=== PATIENT | female | born 1950 | race Caucasian/White ===

== ENCOUNTER 2018-05-08 11:19 | Inpatient (IN) | payer MEDICARE, BC ==
[~2018-05-08] VITALS: Ht 167.6 cm; Wt 60.3 kg
[2018-05-08] MEDS ORDERED: SOD CHLORIDE 0.9% 1,000 ML IV STA (11:34)
[2018-05-08] MEDS ORDERED: ONDANSETRON 4 MG INJ IV STA (11:34)
--- NOTE | 2018-05-08 11:52 | ERD ---
ER Documentation Chief Complaint Chief Complaint weak and dizzy with mild epigastric pain for a few days, nausea no vomiting HPI 67-year-old woman complains of recent dizziness and generalized weakness, she states her symptoms have been going on for a month but got really bad this morning, she felt like she wanted to faint but denies actual loss of consciousness. Upon EMS arrival a field EKG was performed revealing narrow complex bradycardia in the 40s with multiple PVCs. Patient denies history of any medical conditions denies recent new medications, no history of irregular heartbeat. Patient denies fevers or chills, no cough, no chest pain, no weight loss, no shortness of breath. ROS All systems reviewed and are negative except as per history of present illness. Medications Home Meds Reported Medications Ramipril (Ramipril) 1.25 Mg Capsule, 1.25 MG PO DAILY, CAP 05/08/18 Meclizine Hcl* (Meclizine Hcl*) 25 Mg Tablet, 12.5 MG PO BID PRN for DIZZINESS, TAB 05/08/18 Omeprazole* (Omeprazole*) 40 Mg Capsule.dr, 40 MG PO DAILY, #30 CAP 05/08/18 Aspirin (Low Dose Aspirin) 81 Mg Tablet.dr, 81 MG PO DAILY, #30 TAB 05/08/18 Allergies Allergies: Coded Allergies: No Known Allergy (Unverified , 05/08/18) PMhx/Soc Gastritis Medical and Surgical Hx: pt denies Medical Hx, pt denies Surgical Hx History of Surgery: No Anesthesia Reaction: No Hx Neurological Disorder: No Hx Respiratory Disorders: No Hx Cardiac Disorders: No Hx Psychiatric Problems: No Hx Miscellaneous Medical Probl: No Hx Alcohol Use: No Hx Substance Use: No Hx Tobacco Use: No Smoking Status: Never smoker FmHx Family History: No diabetes Physical Exam Vitals Vital Signs Date Temp Pulse Resp B/P (MAP) Pulse Ox O2 O2 Flow FiO2 Time Delivery Rate 05/08/18 98.1 56 18 144/70 98 11:27 (94) Physical Exam GENERAL: Well-developed, well-nourished, well-hydrated, in no apparent distress, looks nontoxic in appearance HEENT: Moist mucous membranes, pink conjunctiva, no cervical spine tenderness or step-off deformities, no goiter, no jaundice or icterus, extraocular movements intact without pain. No submandibular induration, and no pharyngeal erythema NEURO: Alert and oriented 3, cranial nerves II through XII intact bilaterally, pupils equal round reactive to light, no focal deficits or facial asymmetry, sensation intact distally Strength 5/5 in upper and lower extremities bilaterally CARDIAC: Bradycardic and regular LUNGS: Clear bilaterally no wheezing crackles or stridor ABDOMEN: Soft nontender, no guarding, no rigidity, no rebound, no psoas sign no obturator sign. Normoactive bowel sounds SKIN: Warm and dry to touch, no abrasions, contusions, or hematomas, no lacerations, no ecchymosis, no target lesions, and without ulcers EXTREMITIES: No clubbing cyanosis or edema, calves are bilaterally symmetrical, no Homans sign, no popliteal cord sign. Distal pulses equal and bilateral PSYCH: Normal affect without agitation or irritability Result Diagram: 05/08/18 1142 05/08/18 1141 Results 24 hrs Laboratory Tests Test 05/08/18 11:41 05/08/18 11:42 Sodium Level 144 mmol/L Potassium Level 3.6 mmol/L Chloride Level 112 mmol/L Carbon Dioxide Level 25 mmol/L Anion Gap 7 Blood Urea Nitrogen 10 mg/dl Creatinine 0.51 mg/dl Est Glomerular Filtrat Rate mL/min > 60 mL/min Glucose Level 83 mg/dl Calcium Level 8.4 mg/dl Total Bilirubin 0.4 mg/dl Direct Bilirubin 0.00 mg/dl Indirect Bilirubin 0.4 mg/dl Aspartate Amino Transf (AST/SGOT) 22 IU/L Alanine Aminotransferase (ALT/SGPT) 19 IU/L Alkaline Phosphatase 90 IU/L Troponin I < 0.012 ng/ml Total Protein 6.5 g/dl Albumin 3.7 g/dl Globulin 2.80 g/dl Albumin/Globulin Ratio 1.32 Lipase 249 U/L Thyroid Stimulating Hormone (TSH) 1.740 MIU/L Free Thyroxine 0.97 ng/dl Free Triiodothyronine (T3) pg/mL 3.48 pg/ml White Blood Count 7.2 10^3/ul Red Blood Count 4.34 10^6/ul Hemoglobin 12.2 g/dl Hematocrit 38.0 % Mean Corpuscular Volume 87.6 fl Mean Corpuscular Hemoglobin 28.1 pg Mean Corpuscular Hemoglobin Concent 32.1 g/dl Red Cell Distribution Width 13.8 % Platelet Count 384 10^3/UL Mean Platelet Volume 11.0 fl Immature Granulocytes % 0.400 % Neutrophils % 68.0 % Lymphocytes % 23.3 % Monocytes % 7.1 % Eosinophils % 0.8 % Basophils % 0.4 % Nucleated Red Blood Cells % 0.0 /100WBC Immature Granulocytes # 0.030 10^3/ul Neutrophils # 4.9 10^3/ul Lymphocytes # 1.7 10^3/ul Monocytes # 0.5 10^3/ul Eosinophils # 0.1 10^3/ul Basophils # 0.0 10^3/ul Nucleated Red Blood Cells # 0.0 10^3/ul Current Medications Medications Dose Sig/Jim Start Time Status Last (Trade) Ordered Route PRN Stop Time Admin Dose Reason Admin Sodium 1,000 ml @ Q1H STAT 05/08/18 DC 05/08/18 Chloride 1,000 mls/hr IV 11:34 11:51 05/08/18 12:33 Ondansetron 4 mg ONCE STAT 05/08/18 DC 05/08/18 HCl (Zofran IV 11:34 11:50 Inj) 05/08/18 11:37 Procedures/MDM IV line was established patient was placed on personnel clerk rhythm strip revealed a sinus rhythm at about 60 bpm with upright P and T waves. Patient was afebrile I reviewed EMS EKG performed at the scene when patient felt dizzy and reveals a sinus bradycardia at about 40 bpm, multiple premature ventricular contractions, normal axis, narrow QRS complex, no concerning ST elevations or depressions noted One AP view of the chest performed, read by me reveals no acute infiltrates, normal mediastinum, sharp costophrenic and cardiac borders, no air under the diaphragm. Otherwise unremarkable chest x-ray. EKG performed, read by me revealed a normal sinus rhythm at 63 bpm, normal axis, narrow QRS complex, no concerning ST elevations or depressions noted CBC and electrolytes are normal, liver function tests were normal, troponin was negative, thyroid panel normal Patient has no significant past medical history but did exhibit concerning bradycardia and dizziness today, she will be admitted to telemetry setting for continued medical management and cardiology consultation. Departure Diagnosis: Primary Impression: Dizziness Additional Impression: Symptomatic bradycardia Condition: PRASANTH Tang MD May 08, 2018 11:52
[2018-05-08] MEDS ORDERED: OMEP40CA6 PO (12:49)
[2018-05-08] MEDS ORDERED: ASPI81TA52 PO (12:49)
[2018-05-08] MEDS ORDERED: MECL-77 PO (12:49)
[2018-05-08] MEDS ORDERED: RAMI1.2510 PO (12:50)
[2018-05-08] MEDS ORDERED: POTASSIUM CHLORIDE (SR) 20 MEQ TAB PO STA (13:29)
[2018-05-08] MEDS ORDERED: MECLIZINE 12.5 MG TAB PO PRN (13:30)
[2018-05-08] MEDS ORDERED: DOCUSATE SODIUM 100 MG CAP PO PRN (13:30)
[2018-05-08] MEDS ORDERED: ACETAMINOPHEN 325 MG TAB PO PRN (13:30)
[2018-05-08] MEDS ORDERED: ONDANSETRON 4 MG INJ IV PRN (13:30)
[2018-05-08] MEDS ORDERED: NACL 0.9% 3 ML SYG IV SCH (13:30)
[2018-05-08] MEDS ORDERED: MAGNESIUM HYDROXIDE 30ML CUP PO PRN (13:30)
[2018-05-08] MEDS: SOD CHLORIDE 0.9% 1,000 ML IV SCH (13:50)
[2018-05-08] MEDS ORDERED: SOD CHLORIDE 0.9% 100 ML ONE (14:13)
[2018-05-08] MEDS ORDERED: IOHEXOL 300MG/ML 150 ML BTL ONE (14:13)
--- NOTE | 2018-05-08 14:18 | CONS ---
Assessment/Plan Assessment/Plan Hospital Course (Demo Recall) Summary Assessment and Plan: Assessment: Abdominal pain Nausea/vomiting Unintentional weight loss 10 lbs in one week Recent hx of abnormal mammogram Plan: Diet as tolerated NPO after midnight for EGD tomorrow CT abd/pelvis with PO/IV contrast pending Endoscopy - risks/benefits/alternatives/indications of procedure and sedation/anesthesia discussed with patient who states understanding and gives informed consent to proceed. Continu eH2 ashlee- pending results of EGD may change to PPI Further recommendations based on clinical course Patient seen in collaboration with Dr. Chung CC: JEREMIAS CHUNG MD ; Consultation Date/Type/Reason Admit Date/Time Date of Consultation: May 08, 2018 Type of Consult GI Reason for Consultation Abdominal pain ,nausea and vomiting Date/Time of Note DATE: 05/08/18 TIME: 14:10 Hx of Present Illness This is a 67-year-old female with no significant past medical history who presented to the hospital with progressive epigastric/sternal pain associated nausea and nonbloody vomiting. Patient states symptoms began abruptly and have become progressively worse. She notes a 10 pound weight loss over 1 week. She denies overt signs of GI bleed including melena, hematochezia, or hematemesis. She also denies diarrhea or constipation. Current workup is pending we will plan for CT abdomen pelvis with contrast today. Patient will be n.p.o. after midnight we will plan to do an EGD tomorrow. I reviewed risk/benefits of both sedation and procedure patient verbalized understanding is agreeable to procedure. Review of Systems: A 12 system, review was conducted and is negative except as noted in the HPI or here. Past Medical History Home Meds Reported Medications Ramipril (Ramipril) 1.25 Mg Capsule, 1.25 MG PO DAILY, CAP 05/08/18 Meclizine Hcl* (Meclizine Hcl*) 25 Mg Tablet, 12.5 MG PO BID PRN for DIZZINESS, TAB 05/08/18 Omeprazole* (Omeprazole*) 40 Mg Capsule., 40 MG PO DAILY, #30 CAP 05/08/18 Aspirin (Low Dose Aspirin) 81 Mg Tablet., 81 MG PO DAILY, #30 TAB 05/08/18 Medications Current Medications Aspirin (Halfprin) 81 mg DAILY PO ; Start 05/09/18 at 09:00 Meclizine HCl (Antivert) 12.5 mg BID PRN PO DIZZINESS; Start 05/08/18 at 13:30 Sodium Chloride 1,000 ml @ 75 mls/hr [id number] IV Last administered on 05/08/18at 13:50; Admin Dose 75 MLS/HR; Start 05/08/18 at 13:25 IV Flush (NS 3 ml) 3 ml PER PROTOCOL IV ; Start 05/08/18 at 13:30 Ondansetron HCl (Zofran Inj) 4 mg Q6H PRN IV NAUSEA/VOMITING; Start 05/08/18 at 13:30 Acetaminophen (Tylenol Tab) 650 mg Q6H PRN PO .PAIN 1-3 OR TEMP; Start 05/08/18 at 13:30 Docusate Sodium (Colace) 100 mg Q12H PRN PO .CONSTIPATION; Start 05/08/18 at 13:30 Magnesium Hydroxide (Milk Of Mag) 30 ml DAILY PRN PO .CONSTIPATION; Start 05/08/18 at 13:30 Famotidine (Pepcid Iv) 20 mg DAILY IV ; Start 05/09/18 at 09:00 Allergies: Coded Allergies: No Known Allergy (Unverified , 05/08/18) Social History Smoking Status: Never smoker Exam/Review of Systems Exam Vitals Vital Signs Date Temp Pulse Resp B/P (MAP) Pulse Ox O2 O2 Flow FiO2 Time Delivery Rate 05/08/18 98.1 56 18 144/70 98 11:27 (94) Exam PHYSICAL EXAMINATION: GENERAL: Alert & oriented x 3, in no acute distress SKIN: No lesions EYES: Pupils equal reactive to light, no discharge. EARS/NOSE AND THROAT: Ears normal, nose normal NECK: Supple, no masses CHEST: Inspection within normal limits. CARDIOVASCULAR: Heart: Regular rate and rhythm RESPIRATORY: Lungs clear to auscultation and percussion, no wheezing, no rubs GASTROINTESTINAL AND LIVER: Abdomen: Soft, midsternal/epigastric tenderness, non-distended, no hernias, no masses, no organomegaly, no ascites, no guarding, no rebound tenderness, normoactive bowel sounds. Rectal: Deferred. Results Result Diagram: 05/08/18 1142 05/08/18 1141 Results 24hrs Laboratory Tests Test 05/08/18 11:41 05/08/18 11:42 Sodium Level 144 Potassium Level 3.6 Chloride Level 112 H Carbon Dioxide Level 25 Anion Gap 7 Blood Urea Nitrogen 10 Creatinine 0.51 Est Glomerular Filtrat Rate mL/min > 60 Glucose Level 83 Calcium Level 8.4 Magnesium Level 2.1 Total Bilirubin 0.4 Direct Bilirubin 0.00 Indirect Bilirubin 0.4 Aspartate Amino Transf (AST/SGOT) 22 Alanine Aminotransferase (ALT/SGPT) 19 Alkaline Phosphatase 90 Troponin I < 0.012 Total Protein 6.5 Albumin 3.7 Globulin 2.80 Albumin/Globulin Ratio 1.32 Lipase 249 Thyroid Stimulating Hormone (TSH) 1.740 Free Thyroxine 0.97 Free Triiodothyronine (T3) pg/mL 3.48 White Blood Count 7.2 Red Blood Count 4.34 Hemoglobin 12.2 Hematocrit 38.0 Mean Corpuscular Volume 87.6 Mean Corpuscular Hemoglobin 28.1 L Mean Corpuscular Hemoglobin Concent 32.1 Red Cell Distribution Width 13.8 Platelet Count 384 Mean Platelet Volume 11.0 H Immature Granulocytes % 0.400 Neutrophils % 68.0 Lymphocytes % 23.3 Monocytes % 7.1 Eosinophils % 0.8 Basophils % 0.4 Nucleated Red Blood Cells % 0.0 Immature Granulocytes # 0.030 Neutrophils # 4.9 Lymphocytes # 1.7 Monocytes # 0.5 Eosinophils # 0.1 Basophils # 0.0 Nucleated Red Blood Cells # 0.0 Medications Medication Current Medications Aspirin (Halfprin) 81 mg DAILY PO ; Start 05/09/18 at 09:00 Meclizine HCl (Antivert) 12.5 mg BID PRN PO DIZZINESS; Start 05/08/18 at 13:30 Sodium Chloride 1,000 ml @ 75 mls/hr [id number] IV Last administered on 05/08/18at 13:50; Admin Dose 75 MLS/HR; Start 05/08/18 at 13:25 IV Flush (NS 3 ml) 3 ml PER PROTOCOL IV ; Start 05/08/18 at 13:30 Ondansetron HCl (Zofran Inj) 4 mg Q6H PRN IV NAUSEA/VOMITING; Start 05/08/18 at 13:30 Acetaminophen (Tylenol Tab) 650 mg Q6H PRN PO .PAIN 1-3 OR TEMP; Start 05/08/18 at 13:30 Docusate Sodium (Colace) 100 mg Q12H PRN PO .CONSTIPATION; Start 05/08/18 at 13:30 Magnesium Hydroxide (Milk Of Mag) 30 ml DAILY PRN PO .CONSTIPATION; Start 05/08/18 at 13:30 Famotidine (Pepcid Iv) 20 mg DAILY IV ; Start 05/09/18 at 09:00 RAYA CULVER May 08, 2018 14:18
--- NOTE | 2018-05-08 14:25 | HP ---
Date/Time of Note Date/Time of Note DATE: 05/08/18 TIME: 14:00 Assessment/Plan VTE Prophylaxis SCD applied (from Nsg): Yes Pharmacological prophylaxis: LMWH Lines/Catheters IV Catheter Type (from Nrsg): Saline Lock Assessment/Plan Assessment/Plan 1. Acute abdominal pain - Will check CT abd/pelvis to rule out any pathological causes - noted with epigastric pain and weight loss. GI consulted to evaluate need for EGD - sounds like GERD although has been started on PPI by PCP without any improvement. Denied any GI bleeding - PPI on board and Zofran PRN for nausea 2. Acute dizziness - will check CT head for any acute issues - given h/o abnormal mammogram, need to rule out any pathological causes for dizziness - on Meclizine as outpatient without any relief 3. HTN - patient on very low dose Ramipril as outpatient - will give Lisinopril while inhouse - monitor and adjust as needed 4. Weight loss - unknown etiology as this time 5. Diet - cardiac 6. GI ppx - PPI 7. DVT ppx - LMWH 8. Disposition - Admit to telemetry for workup of dizziness and abdominal pain. Result Diagram: 05/08/18 1142 05/08/18 1141 Results 24hrs Laboratory Tests Test 05/08/18 11:41 05/08/18 11:42 Sodium Level 144 Potassium Level 3.6 Chloride Level 112 H Carbon Dioxide Level 25 Anion Gap 7 Blood Urea Nitrogen 10 Creatinine 0.51 Est Glomerular Filtrat Rate mL/min > 60 Glucose Level 83 Calcium Level 8.4 Magnesium Level 2.1 Total Bilirubin 0.4 Direct Bilirubin 0.00 Indirect Bilirubin 0.4 Aspartate Amino Transf (AST/SGOT) 22 Alanine Aminotransferase (ALT/SGPT) 19 Alkaline Phosphatase 90 Troponin I < 0.012 Total Protein 6.5 Albumin 3.7 Globulin 2.80 Albumin/Globulin Ratio 1.32 Lipase 249 Thyroid Stimulating Hormone (TSH) 1.740 Free Thyroxine 0.97 Free Triiodothyronine (T3) pg/mL 3.48 White Blood Count 7.2 Red Blood Count 4.34 Hemoglobin 12.2 Hematocrit 38.0 Mean Corpuscular Volume 87.6 Mean Corpuscular Hemoglobin 28.1 L Mean Corpuscular Hemoglobin Concent 32.1 Red Cell Distribution Width 13.8 Platelet Count 384 Mean Platelet Volume 11.0 H Immature Granulocytes % 0.400 Neutrophils % 68.0 Lymphocytes % 23.3 Monocytes % 7.1 Eosinophils % 0.8 Basophils % 0.4 Nucleated Red Blood Cells % 0.0 Immature Granulocytes # 0.030 Neutrophils # 4.9 Lymphocytes # 1.7 Monocytes # 0.5 Eosinophils # 0.1 Basophils # 0.0 Nucleated Red Blood Cells # 0.0 HPI/ROS Admit Date/Time Admit Date/Time 05/08/18 1300 Hx of Present Illness 67 yo F with PMH HTN presented to ED with worsening dizziness and abdominal pain for the past 6 weeks. Patient states she was evaluated by her PCP for BPPV and did not have findings significant for vertigo. He sent patient for CT head which was not performed yet. Patient also admits to worsening epigastric pain and associated nausea and vomiting. She admits to recent weight loss which she associates with diminished appetite. Denies constipation or diarrhea. She has had regular BMs daily. She was supposed to have a CT scan abd/pelvis performed as well as outpatient. She was concerned that she had issues with her gallbladder. Family at bedside and discussed she was told she needed to have a repeat mammogram performed given her previous one was abnormal. Patient denies any melena, BRBPR, family history of GI issues, cardiac issues. Denies any smoking or alcohol use. Patient was reported to have HR in the 40s during transport in EMS but on EKG was 63. Patient denies any chest pain, shortness of breath, palpitations, LOC, visual changes or paraesthesia. ROS All 12 systems reviewed and pertinent positives as per HPI. All others negative. Constitutional: fatigue; No nausea Eyes: No discharge ENT: No congestion Respiratory: No cough, No shortness of breath, No sputum, No wheezing Cardiovascular: No chest pain, No lightheadedness, No palpitations Gastrointestinal: pain, nausea, vomiting; No constipation, No diarrhea Genitourinary: no complaints Musculoskeletal: no complaints Skin: No bruising, No laceration, No rash Neurologic: dizziness; No confusion, No focal-weakness, No syncope Endocrine: no complaints Lymphatic: no complaints Psychological: nl mood/affect Immunologic: no complaints PMH/Family/Social Past Medical History Medical History: hypertension Medications Current Medications Aspirin (Halfprin) 81 mg DAILY PO ; Start 05/09/18 at 09:00 Meclizine HCl (Antivert) 12.5 mg BID PRN PO DIZZINESS; Start 05/08/18 at 13:30 Sodium Chloride 1,000 ml @ 75 mls/hr [id number] IV Last administered on 05/08/18at 13:50; Admin Dose 75 MLS/HR; Start 05/08/18 at 13:25 IV Flush (NS 3 ml) 3 ml PER PROTOCOL IV ; Start 05/08/18 at 13:30 Ondansetron HCl (Zofran Inj) 4 mg Q6H PRN IV NAUSEA/VOMITING; Start 05/08/18 at 13:30 Acetaminophen (Tylenol Tab) 650 mg Q6H PRN PO .PAIN 1-3 OR TEMP; Start 05/08/18 at 13:30 Docusate Sodium (Colace) 100 mg Q12H PRN PO .CONSTIPATION; Start 05/08/18 at 13:30 Magnesium Hydroxide (Milk Of Mag) 30 ml DAILY PRN PO .CONSTIPATION; Start 05/08/18 at 13:30 Famotidine (Pepcid Iv) 20 mg DAILY IV ; Start 05/09/18 at 09:00 Coded Allergies: No Known Allergy (Unverified , 05/08/18) Past Surgical History Past Surgical Hx: no surgical history Family History Significant Family History: hypertension Social History Alcohol Use: none Smoking Status: Never smoker Drug Use: none Exam/Review of Systems Vital Signs Vitals Vital Signs Date Temp Pulse Resp B/P (MAP) Pulse Ox O2 O2 Flow FiO2 Time Delivery Rate 05/08/18 98.1 56 18 144/70 98 11:27 (94) Exam Exam General: no acute distress. awake and answering questions appropriately. Fatigued HEENT: NC/AT. PERRLA. EOM intact. CVS: S1, S2, regular rhythm, bradycardia. no murmurs Lungs: CTA bilaterally. no wheezing or rhonchi Abd: soft, nontender, nondistended, +BS, no rebound or guarding Ext: no edema, cyanosis, or clubbing Skin: no rashes or lesions appreciated Neuro: no focal deficits, motor and sensory intact Additional Comments Home medications reviewed PROCEDURE: XR Chest. CLINICAL INDICATION: Pain. . TECHNIQUE: Single frontal chest x-ray. COMPARISON: None. FINDINGS: The lungs are clear of acute infiltrates, edema, effusions, or masses.. The cardiomediastinal silhouette is unremarkable. The osseous structures are intact. IMPRESSION: No acute cardiopulmonary disease. RPTAT: GG .Ronak Kemp MD, Date Time Electronically viewed and signed by .Ronak Kemp MD, on 05/08/2018 11:52 ANT MCCURDY MD May 08, 2018 14:12
--- NOTE | 2018-05-08 16:28 | RADRPT ---
Echocardiogram Report Patient Name: SHILPA SCHWABPatient ID: [id number] : 1950 (67y 7m)Study Date: 05/08/2018 2:19:28 PM Gender: FAccession #: [id number] Tech: Dk Narvaez [facility] Location: [facility] Ref.Physician: ANT MCCURDY Height(Cm): BSA: Weight(Kg): Quality: AdequateAccount #: Procedures: Echocardiographic Report: Transthoracic echocardiogram with complete 2D, M-Mode, and doppler examination. Indications: Bradycardia. Measurements: 2D/M Mode Doppler Measurement Value Normal Range Measurement Value Normal Range LVIDd 2D 4.0 [ 3.8 - 5.2 ] cm AV Peak Madan 1.6 [ 100.0 - 170.0 ] cm/sec LVIDs 2D 2.3 [ 2.2 - 3.5 ] cm AV Peak PG 10.0 [ 2.0 - 9.0 ] mmHg LVPWd 2D 1.0 [ 0.6 - 0.9 ] cm LVOT Peak Madan 1.4 [ 70.0 - 110.0 ] cm/sec IVSd 2D 1.0 [ 0.6 - 0.9 ] cm LVOT Peak PG 7.0 [ 2.0 - 6.0 ] mmHg AoR Diam 2D 2.8 [ 2.3 - 3.1 ] cm MV E Peak Madan 0.9 [ 60.0 - 130.0 ] cm/sec EDV 2D 71.7 [ 46.0 - 106.0 ] ml MV A Peak Madan 0.7 [ 100.0 - 120.0 ] cm/sec ESV 2D 17.7 [ 14.0 - 42.0 ] ml MV E/A 1.4 [ 0.8 - 1.5 ] ratio EF 2D 75.3 [ 54.0 - 74.0 ] percent MV Decel Time 261 [ 104 - 258 ] msec LA Dimen 2D 2.6 [ 2.7 - 3.8 ] cm Lat E` Madan 0.1 [ 10.0 - 15.0 ] cm/sec Lateral E/E` 9.9 [ 1.0 - 2.0 ] ratio MV E/A 1.4 [ 0.8 - 1.5 ] ratio TR Peak Madan 2.5 [ 100.0 - 280.0 ] cm/sec TR Peak PG 25.0 mmHg RVSP 28.0 [ 10.0 - 36.0 ] mmHg Findings: Left Ventricle: Normal left ventricular systolic function. Normal left ventricular cavity size. Normal left ventricular wall thickness. Ejection fraction is visually estimated at 60-65 %. Tissue Doppler/Mitral Doppler indices are consistent with impaired relaxation (Stage I diastolic dysfunction). Right Ventricle: Normal right ventricular size. Normal right ventricular systolic function. Left Atrium: The left atrium is normal in size. Right Atrium: The right atrium is normal in size. Mitral Valve: Mild mitral leaflet calcification. Mild mitral annular calcification. Trace mitral regurgitation. Aortic Valve: No significant aortic stenosis or insufficiency. Aortic cusps appear mildly calcified. Tricuspid Valve: Normal appearance of the tricuspid valve. Estimated peak PA systolic pressure 28 mmHg. There is mild tricuspid regurgitation. Pulmonic Valve: Normal pulmonic valve appearance. Pericardium: Normal pericardium with no significant pericardial effusion. Left pleural effusion seen. Aorta: Normal aortic root. IVC: Normal size and normal respiratory collapse consistent with normal right atrial pressure. Conclusions: Normal left ventricular systolic function. Normal left ventricular cavity size. Normal left ventricular wall thickness. Ejection fraction is visually estimated at 60-65 %. Tissue Doppler/Mitral Doppler indices are consistent with impaired relaxation (Stage I diastolic dysfunction). ). Mild mitral leaflet calcification. Mild mitral annular calcification. Trace mitral regurgitation. Normal appearance of the tricuspid valve. Estimated peak PA systolic pressure 28 mmHg. There is mild tricuspid regurgitation. Electronically Signed By: Jasper Maguire 2018-05-08 16:27:36 PDT
[2018-05-08 17:16] VITALS: PULSE 57
[2018-05-08 18:12] VITALS: BP 144/65; PULSE 56; RESP 22
[2018-05-08 18:45] VITALS: Ht 167.6 cm; Wt 60.3 kg
[2018-05-08 19:50] VITALS: BP 117/62; PULSE 53; RESP 18
[2018-05-08 20:03] VITALS: PULSE 64
[2018-05-08 23:15] VITALS: BP 95/51; PULSE 53; RESP 16
[2018-05-09] VITALS (19 sets, daily range): BP systolic 105–166; BP diastolic 53–78; PULSE 51–76; RESP 14–22
[2018-05-09] MEDS: SOD CHLORIDE 0.9% 1,000 ML IV SCH ×2 (03:00→15:53)
[2018-05-09] MEDS: LISINOPRIL 5 MG TAB PO SCH (09:00)
[2018-05-09] MEDS: ASPIRIN (EC) 81 MG TAB PO SCH (09:00)
[2018-05-09] MEDS ORDERED: NON-FORMULARY/PATIENT OWN MED (Omeprazole* 40 MG) PO SCH (09:00)
[2018-05-09] MEDS ORDERED: FAMOTIDINE 20 MG INJ IV SCH ×2 (09:00→20:30)
--- NOTE | 2018-05-09 09:09 | PN ---
Date/Time of Note Date/Time of Note DATE: 05/09/18 TIME: 09:09 Assessment/Plan VTE Prophylaxis Risk score (from Ns)>0 risk: 2 SCD applied (from Ns): Yes Pharmacological prophylaxis: NA/contraindicated Pharm contraindication: low risk/ambulating Lines/Catheters IV Catheter Type (from Nrs): Saline Lock Assessment/Plan Assessment/Plan 1. Acute abdominal pain - CT A/P negative for acute abnormalities - EGD scheduled for today - GI consultation appreciated 2. Acute dizziness - CT head negative for acute abnormalities - on Meclizine as outpatient without any relief 3. HTN - patient on very low dose Ramipril as outpatient - will give Lisinopril while inhouse - monitor and adjust as needed 4. Weight loss - unknown etiology as this time 5. Disposition - EGD pending today and further treatment based on results Result Diagram: 05/09/18 0510 05/09/18 0510 Results 24hrs Laboratory Tests Test 05/08/18 11:41 05/08/18 11:42 05/08/18 12:00 05/09/18 05:10 Sodium Level 144 142 Potassium Level 3.6 4.5 Chloride Level 112 H 105 Carbon Dioxide Level 25 29 Anion Gap 7 8 Blood Urea Nitrogen 10 18 Creatinine 0.51 0.68 Est Glomerular > 60 > 60 Filtrat Rate mL/min Glucose Level 83 89 Calcium Level 8.4 9.2 Magnesium Level 2.1 2.2 Total Bilirubin 0.4 Direct Bilirubin 0.00 Indirect Bilirubin 0.4 Aspartate Amino 22 Transf (AST/SGOT) Alanine 19 Aminotransferase (AL T/SGPT) Alkaline Phosphatase 90 Troponin I < 0.012 Total Protein 6.5 Albumin 3.7 Globulin 2.80 Albumin/Globulin 1.32 Ratio Lipase 249 Thyroid Stimulating 1.740 Hormone (TSH) Free Thyroxine 0.97 Free 3.48 Triiodothyronine (T3) pg/mL White Blood Count 7.2 7.4 Red Blood Count 4.34 4.26 Hemoglobin 12.2 11.9 L Hematocrit 38.0 37.6 Mean Corpuscular 87.6 88.3 Volume Mean Corpuscular 28.1 L 27.9 L Hemoglobin Mean Corpuscular 32.1 31.6 L Hemoglobin Concent Red Cell 13.8 13.9 Distribution Width Platelet Count 384 375 Mean Platelet Volume 11.0 H 11.2 H Immature 0.400 0.300 Granulocytes % Neutrophils % 68.0 61.9 Lymphocytes % 23.3 26.9 Monocytes % 7.1 8.3 Eosinophils % 0.8 2.2 Basophils % 0.4 0.4 Nucleated Red Blood 0.0 0.0 Cells % Immature 0.030 0.020 Granulocytes # Neutrophils # 4.9 4.6 Lymphocytes # 1.7 2.0 Monocytes # 0.5 0.6 Eosinophils # 0.1 0.2 Basophils # 0.0 0.0 Nucleated Red Blood 0.0 0.0 Cells # Urine Color YELLOW Urine Clarity CLEAR Urine pH 5.0 Urine Specific 1.032 H [place] Urine Ketones NEGATIVE Urine Nitrite NEGATIVE Urine Bilirubin NEGATIVE Urine Urobilinogen NEGATIVE Urine Leukocyte NEGATIVE Esterase Urine Hemoglobin NEGATIVE Urine Glucose NEGATIVE Urine Total Protein NEGATIVE Subjective 24 Hr Interval Summary Free Text/Dictation Patient states shes been feeling dizzy since awakening but believes its from not eating. Discussed results of CT scans and plans for EGD today. Exam/Review of Systems Exam Vitals Vital Signs Date Temp Pulse Resp B/P (MAP) Pulse Ox O2 O2 Flow FiO2 Time Delivery Rate 05/09/18 72 08:00 05/09/18 98.5 18 124/64 98 07:42 (84) 05/08/18 Room Air 18:12 Intake and Output 05/08/18 05/08/18 05/09/18 1515:00 23:00 07:00 IntakeIntake Total 465 ml OutputOutput Total 350 ml BalanceBalance 115 ml Exam General: no acute distress. fatigued CVS: S1, S2, regular rhythm, bradycardia. no murmurs Lungs: CTA bilaterally. no wheezing or rhonchi Abd: soft, nontender, nondistended, +BS, no rebound or guarding Ext: no edema, cyanosis, or clubbing Skin: no rashes or lesions appreciated Results Results 24hrs Laboratory Tests Test 05/08/18 11:41 05/08/18 11:42 05/08/18 12:00 05/09/18 05:10 Sodium Level 144 142 Potassium Level 3.6 4.5 Chloride Level 112 H 105 Carbon Dioxide Level 25 29 Anion Gap 7 8 Blood Urea Nitrogen 10 18 Creatinine 0.51 0.68 Est Glomerular > 60 > 60 Filtrat Rate mL/min Glucose Level 83 89 Calcium Level 8.4 9.2 Magnesium Level 2.1 2.2 Total Bilirubin 0.4 Direct Bilirubin 0.00 Indirect Bilirubin 0.4 Aspartate Amino 22 Transf (AST/SGOT) Alanine 19 Aminotransferase (AL T/SGPT) Alkaline Phosphatase 90 Troponin I < 0.012 Total Protein 6.5 Albumin 3.7 Globulin 2.80 Albumin/Globulin 1.32 Ratio Lipase 249 Thyroid Stimulating 1.740 Hormone (TSH) Free Thyroxine 0.97 Free 3.48 Triiodothyronine (T3) pg/mL White Blood Count 7.2 7.4 Red Blood Count 4.34 4.26 Hemoglobin 12.2 11.9 L Hematocrit 38.0 37.6 Mean Corpuscular 87.6 88.3 Volume Mean Corpuscular 28.1 L 27.9 L Hemoglobin Mean Corpuscular 32.1 31.6 L Hemoglobin Concent Red Cell 13.8 13.9 Distribution Width Platelet Count 384 375 Mean Platelet Volume 11.0 H 11.2 H Immature 0.400 0.300 Granulocytes % Neutrophils % 68.0 61.9 Lymphocytes % 23.3 26.9 Monocytes % 7.1 8.3 Eosinophils % 0.8 2.2 Basophils % 0.4 0.4 Nucleated Red Blood 0.0 0.0 Cells % Immature 0.030 0.020 Granulocytes # Neutrophils # 4.9 4.6 Lymphocytes # 1.7 2.0 Monocytes # 0.5 0.6 Eosinophils # 0.1 0.2 Basophils # 0.0 0.0 Nucleated Red Blood 0.0 0.0 Cells # Urine Color YELLOW Urine Clarity CLEAR Urine pH 5.0 Urine Specific 1.032 H [place] Urine Ketones NEGATIVE Urine Nitrite NEGATIVE Urine Bilirubin NEGATIVE Urine Urobilinogen NEGATIVE Urine Leukocyte NEGATIVE Esterase Urine Hemoglobin NEGATIVE Urine Glucose NEGATIVE Urine Total Protein NEGATIVE Medications Medication Current Medications Aspirin (Halfprin) 81 mg DAILY PO ; Start 05/09/18 at 09:00 Meclizine HCl (Antivert) 12.5 mg BID PRN PO DIZZINESS; Start 05/08/18 at 13:30 Sodium Chloride 1,000 ml @ 75 mls/hr [id number] IV Last administered on 05/09/18at 03:00; Admin Dose 75 MLS/HR; Start 05/08/18 at 13:25 IV Flush (NS 3 ml) 3 ml PER PROTOCOL IV ; Start 05/08/18 at 13:30 Ondansetron HCl (Zofran Inj) 4 mg Q6H PRN IV NAUSEA/VOMITING; Start 05/08/18 at 13:30 Acetaminophen (Tylenol Tab) 650 mg Q6H PRN PO .PAIN 1-3 OR TEMP; Start 05/08/18 at 13:30 Docusate Sodium (Colace) 100 mg Q12H PRN PO .CONSTIPATION; Start 05/08/18 at 13:30 Magnesium Hydroxide (Milk Of Mag) 30 ml DAILY PRN PO .CONSTIPATION; Start 05/08/18 at 13:30 Famotidine (Pepcid Iv) 20 mg DAILY IV ; Start 05/09/18 at 09:00 Lisinopril (Zestril) 5 mg DAILY PO ; Start 05/09/18 at 09:00 ANT MCCURDY MD May 09, 2018 09:09
[2018-05-09] MEDS ORDERED: PROPOFOL 20 ML ONE (16:30)
[2018-05-09] MEDS ORDERED: PROPOFOL 200 MG INJ ONE (16:30)
[2018-05-09] MEDS ORDERED: LIDOCAINE 2% (SDV) 5 ML INJ ONE (16:30)
--- NOTE | 2018-05-09 16:36 | PREAC ---
Date/Time of Note Date/Time of Note DATE: 05/09/18 TIME: 16:35 Anesthesia Eval and Record Evaluation Time Pre-Procedure Interview DATE: 05/09/18 TIME: 16:35 Age 67 Sex female NPO: 8 hrs Preoperative diagnosis epigastric pain and nausea Planned procedure EGD Past Medical History Past Medical History: Includes Cardio: HTN Surgery & Anesthesia Issues No known issue Meds Anticoagulation: No Beta Oralia within 24 hr: No Reason Beta Oralia not given: Pt. not on B-Oralia Reported Medications Ramipril (Ramipril) 1.25 Mg Capsule, 1.25 MG PO DAILY, CAP 05/08/18 Meclizine Hcl* (Meclizine Hcl*) 25 Mg Tablet, 12.5 MG PO BID PRN for DIZZINESS, TAB 05/08/18 Omeprazole* (Omeprazole*) 40 Mg Capsule.dr, 40 MG PO DAILY, #30 CAP 05/08/18 Aspirin (Low Dose Aspirin) 81 Mg Tablet.dr, 81 MG PO DAILY, #30 TAB 05/08/18 Current Medications Aspirin (Halfprin) 81 mg DAILY PO ; Start 05/09/18 at 09:00 Meclizine HCl (Antivert) 12.5 mg BID PRN PO DIZZINESS; Start 05/08/18 at 13:30 Sodium Chloride 1,000 ml @ 75 mls/hr [id number] IV Last administered on 05/09/18at 15:53; Admin Dose 75 MLS/HR; Start 05/08/18 at 13:25 IV Flush (NS 3 ml) 3 ml PER PROTOCOL IV ; Start 05/08/18 at 13:30 Ondansetron HCl (Zofran Inj) 4 mg Q6H PRN IV NAUSEA/VOMITING; Start 05/08/18 at 13:30 Acetaminophen (Tylenol Tab) 650 mg Q6H PRN PO .PAIN 1-3 OR TEMP; Start 05/08/18 at 13:30 Docusate Sodium (Colace) 100 mg Q12H PRN PO .CONSTIPATION; Start 05/08/18 at 13:30 Magnesium Hydroxide (Milk Of Mag) 30 ml DAILY PRN PO .CONSTIPATION; Start 05/08/18 at 13:30 Famotidine (Pepcid Iv) 20 mg DAILY IV Last administered on 05/09/18at 09:35; Admin Dose 20 MG; Start 05/09/18 at 09:00 Lisinopril (Zestril) 5 mg DAILY PO ; Start 05/09/18 at 09:00 Meds reviewed: Yes Allergies Coded Allergies: No Known Allergy (Unverified , 05/08/18) Allergies Reviewed: Yes Labs/Studies Labs Reviewed: Reviewed by anesthesiologist Result Diagram: 05/09/18 0510 05/09/18 0510 Laboratory Tests 05/09/18 05:10 test: N/A Pre-procedure Exam Last vitals Vital Signs Date Temp Pulse Resp B/P (MAP) Pulse Ox O2 O2 Flow FiO2 Time Delivery Rate 05/09/18 99.1 68 20 166/78 100 Room Air 16:26 (107) Airway: Adequate mouth opening, Adequate thyromental dist Mallampati: Mallampati II Teeth: Normal Lung: Normal Heart: Normal ASA Physical Status ASA physical status: 2 Emergency: None Planned Anesthetic General/MAC: Mask Planned Pain Management Parenteral pain med Pre-operative Attestations Prior to commencing anesthesia and surgery, the patient was re-evaluated, there was verification of: *The patient's identity *The results of appropriate recent lab work and preoperative vital signs *The above evaluation not changing prior to induction *Anesthetic plan, risk benefits, alternative and complications discussed with patient/family; questions answered; patient/family understands, accepts and wishes to proceed. Hand Shaper used RAIZA CORMIER MD May 09, 2018 16:36
--- NOTE | 2018-05-09 16:43 | HPN ---
Date/Time of Note Date/Time of Note DATE: 05/09/18 TIME: 16:43 Interval H&P Admission Note Pt. seen H&P reviewed: No system changes JONI KEEN May 09, 2018 16:43
[2018-05-09] MEDS ORDERED: ONDANSETRON 4 MG INJ IV PRN (17:00)
--- NOTE | 2018-05-09 17:30 | PAC ---
Date/Time of Note Date/Time of Note DATE: 05/09/18 TIME: 17:29 Post-Anesthesia Notes Post-Anesthesia Note Last documented vital signs Vital Signs Date Temp Pulse Resp B/P (MAP) Pulse Ox O2 O2 Flow FiO2 Time Delivery Rate 05/09/18 70 14 113/62 96 Room Air 17:19 (79) 05/09/18 98.0 17:09 Activity: WNL Respiratory function: WNL Cardiovascular function: WNL Mental status: Baseline Pain reasonably controlled: Yes Hydration appropriate: Yes Nausea/Vomiting absent: Yes Comments BP: 113/62 HR: 70 RR: 15 T: 98 SaO2: 98% RAIZA CORMIER MD May 09, 2018 17:30
[2018-05-09] MEDS ORDERED: AL HYDROX/MG HYDROX/SIMETH 30 ML CUP PO PRN (20:30)
[2018-05-10] VITALS (10 sets, daily range): BP systolic 112–158; BP diastolic 60–74; PULSE 53–69; RESP 18–19
[2018-05-10] MEDS: SOD CHLORIDE 0.9% 1,000 ML IV SCH (08:00)
[2018-05-10] MEDS: ASPIRIN (EC) 81 MG TAB PO SCH (08:25)
[2018-05-10] MEDS: LISINOPRIL 5 MG TAB PO SCH (08:25)
--- NOTE | 2018-05-10 08:40 | PN ---
Date/Time of Note Date/Time of Note DATE: 05/10/18 TIME: 08:40 Assessment/Plan VTE Prophylaxis Risk score (from Nsg)>0 risk: 2 SCD applied (from Ns): Yes Pharmacological prophylaxis: other Lines/Catheters IV Catheter Type (from Nrsg): Peripheral IV Assessment/Plan Assessment/Plan 1. Acute abdominal pain- improving - GI on board and appreciate recommendations. EGD performed with findings of gastritis and duodenitis. Started on PPI and Carafate - CT A/P negative for acute abnormalities - Hpylori bx negative 2. Acute dizziness- worsening - CT head negative for acute abnormalities and will order MRI to further evaluate given worsening sx and affecting balance - on Meclizine as outpatient without any relief 3. HTN - patient on very low dose Ramipril as outpatient - will give Lisinopril while inhouse - monitor and adjust as needed 4. Weight loss - unknown etiology as this time 5. Disposition - MRI ordered to further assess dizziness given affecting overall balance Result Diagram: 05/09/18 0510 05/09/18 0510 Subjective 24 Hr Interval Summary Free Text/Dictation Patient states her dizziness has worsened since yesterday and affecting her balance. She states the dizziness is associated with abdominal pain. Discussed plan of care and results of all studies with daughter at patients request. Exam/Review of Systems Exam Vitals Vital Signs Date Temp Pulse Resp B/P (MAP) Pulse Ox O2 O2 Flow FiO2 Time Delivery Rate 05/10/18 61 08:00 05/10/18 98.5 18 158/74 96 08:00 (102) 05/09/18 Room Air 17:24 Intake and Output 05/09/18 05/09/18 05/10/18 1414:59 22:59 06:59 IntakeIntake Total 900 ml 1140 ml BalanceBalance 900 ml 1140 ml Exam General: no acute distress. fatigued CVS: S1, S2, regular rhythm, bradycardia. no murmurs Lungs: CTA bilaterally. no wheezing or rhonchi Abd: soft, nontender, nondistended, +BS, no rebound or guarding Ext: no edema, cyanosis, or clubbing Skin: no rashes or lesions appreciated Medications Medication Current Medications Aspirin (Halfprin) 81 mg DAILY PO Last administered on 05/10/18at 08:25; Admin Dose 81 MG; Start 05/09/18 at 09:00 Meclizine HCl (Antivert) 12.5 mg BID PRN PO DIZZINESS Last administered on 05/09/18at 20:38; Admin Dose 12.5 MG; Start 05/08/18 at 13:30 Sodium Chloride 1,000 ml @ 75 mls/hr [id number] IV Last administered on 05/10/18 08:00; Admin Dose 75 MLS/HR; Start 05/08/18 at 13:25 IV Flush (NS 3 ml) 3 ml PER PROTOCOL IV ; Start 05/08/18 at 13:30 Ondansetron HCl (Zofran Inj) 4 mg Q6H PRN IV NAUSEA/VOMITING; Start 05/08/18 at 13:30 Acetaminophen (Tylenol Tab) 650 mg Q6H PRN PO .PAIN 1-3 OR TEMP; Start 05/08/18 at 13:30 Docusate Sodium (Colace) 100 mg Q12H PRN PO .CONSTIPATION; Start 05/08/18 at 13:30 Magnesium Hydroxide (Milk Of Mag) 30 ml DAILY PRN PO .CONSTIPATION; Start 05/08/18 at 13:30 Lisinopril (Zestril) 5 mg DAILY PO Last administered on 05/10/18at 08:25; Admin Dose 5 MG; Start 05/09/18 at 09:00 Al Hydrox/Mg Hydrox/Simethicone (Mag-Al Plus) 30 ml Q6H PRN PO GASTROINTESTINAL UPSET Last administered on 05/09/18at 20:35; Admin Dose 30 ML; Start 05/09/18 at 20:30 Famotidine (Pepcid) 20 mg BID PO Last administered on 05/10/18at 08:25; Admin Dose 20 MG; Start 05/10/18 at 09:00 ANT MCCURDY MD May 10, 2018 08:40
[2018-05-10] MEDS ORDERED: FAMOTIDINE 20 MG TAB PO SCH (09:00)
[2018-05-10] MEDS: SUCRALFATE 1 GM TAB PO SCH ×4 (12:08→20:24)
--- NOTE | 2018-05-10 15:08 | PN ---
Date/Time of Note Date/Time of Note DATE: 05/10/18 TIME: 14:45 Assessment/Plan VTE Prophylaxis Risk score (from Nsg)>0 risk: 2 SCD applied (from Nsg): No SCD contraindicated: low risk/ambulating Pharmacological prophylaxis: heparin Lines/Catheters IV Catheter Type (from Nrsg): Peripheral IV Assessment/Plan Assessment/Plan Assessment: Abdominal pain Dizziness Nausea/vomiting Status post EGD 05/09/2018 -Mild gastritis -Duodenitis -Biopsies are negative for H. 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 Chung Subjective: Results of EGD and the biopsy discussed with the patient. Patient is complain ing of feeling dizzy for the past 2 months. Brain MRI is scheduled for today. Patient never had a colonoscopy done. Recommend colonoscopy for colon cancer screening as an outpatient. PHYSICAL EXAMINATION: GENERAL: Well developed, well nourished, alert & oriented x 3, in no acute distress SKIN: No lesions, no stigmata chronic liver disease, no evidence of bleeding diathesis LYMPHATIC: No palpable lymphadenopathy. HEAD: Normocephalic, atraumatic, no tenderness. EYES: Pupils equal reactive to light and accommodation, full extraocular movements, sclera clear, non-icteric, no discharge. EARS/NOSE AND THROAT: Ears normal, nose normal, oropharynx normal, oral membranes well hydrated without lesions. NECK: Supple, no masses, thyroid normal, JVP within normal limits, carotids normal without bruits. CHEST: Inspection within normal limits. CARDIOVASCULAR: Heart: Regular rate and rhythm, no murmurs, gallops or rubs. Peripheral pulses present within normal limits, no cyanosis, clubbing or edemas. No pulsatile abdominal mass RESPIRATORY: Lungs clear to auscultation and percussion, no wheezing, no rubs GASTROINTESTINAL AND LIVER: Abdomen: Soft, epigastric tenderness, non-distended, no hernias, no masses, no organomegaly, no ascites, no guarding, no rebound tenderness, normoactive bowel sounds. Rectal: Deferred. GENITOURINARY: Female genitalia within normal limits. EXTREMITIES: No cyanosis, clubbing or edema. Result Diagram: 05/09/1850905/09/18509 CC: JONI KEEN ; Exam/Review of Systems Exam Vitals Vital Signs Date Temp Pulse Resp B/P (MAP) Pulse Ox O2 O2 Flow FiO2 Time Delivery Rate 05/10/18 68 12:00 05/10/18 98.2 19 118/66 96 11:32 (83) 05/09/18 Room Air 17:24 Intake and Output 05/09/18 05/09/18 05/10/18 1515:00 23:00 07:00 IntakeIntake Total 900 ml 1140 ml BalanceBalance 900 ml 1140 ml Medications Medication Current Medications Aspirin (Halfprin) 81 mg DAILY PO Last administered on 05/10/18at 08:25; Admin Dose 81 MG; Start 05/09/18 at 09:00 Meclizine HCl (Antivert) 12.5 mg BID PRN PO DIZZINESS Last administered on 05/09/18at 20:38; Admin Dose 12.5 MG; Start 05/08/18 at 13:30 IV Flush (NS 3 ml) 3 ml PER PROTOCOL IV ; Start 05/08/18 at 13:30 Ondansetron HCl (Zofran Inj) 4 mg Q6H PRN IV NAUSEA/VOMITING; Start 05/08/18 at 13:30 Acetaminophen (Tylenol Tab) 650 mg Q6H PRN PO .PAIN 1-3 OR TEMP; Start 05/08/18 at 13:30 Docusate Sodium (Colace) 100 mg Q12H PRN PO .CONSTIPATION; Start 05/08/18 at 13:30 Magnesium Hydroxide (Milk Of Mag) 30 ml DAILY PRN PO .CONSTIPATION; Start 05/08/18 at 13:30 Lisinopril (Zestril) 5 mg DAILY PO Last administered on 05/10/18at 08:25; Admin Dose 5 MG; Start 05/09/18 at 09:00 Al Hydrox/Mg Hydrox/Simethicone (Mag-Al Plus) 30 ml Q6H PRN PO GASTROINTESTINAL UPSET Last administered on 05/09/18at 20:35; Admin Dose 30 ML; Start 05/09/18 at 20:30 Pantoprazole (Protonix Tab) 40 mg BID@,18 PO ; Start 05/10/18 at 18:00 Sucralfate (Carafate) 1 gm QID PO Last administered on 05/10/18at 12:08; Admin Dose 1 GM; Start 05/10/18 at 11:00 ZARIA AMOS NP May 10, 2018 14:55
[2018-05-10] MEDS: PANTOPRAZOLE (EC) 40 MG TAB PO SCH (19:01)
[2018-05-11] VITALS (8 sets, daily range): BP systolic 96–121; BP diastolic 54–66; PULSE 51–70; RESP 18–19
[2018-05-11] MEDS: PANTOPRAZOLE (EC) 40 MG TAB PO SCH (06:49)
--- NOTE | 2018-05-11 08:40 | PN ---
Date/Time of Note Date/Time of Note DATE: 05/11/18 TIME: 08:40 Assessment/Plan VTE Prophylaxis Risk score (from Nsg)>0 risk: 2 SCD applied (from Ns): Yes Pharmacological prophylaxis: NA/contraindicated Pharm contraindication: low risk/ambulating Lines/Catheters IV Catheter Type (from Nrsg): Peripheral IV Assessment/Plan Assessment/Plan 1. Acute abdominal pain- resolving - After started on PPI and Carafate, patient states dizziness has improved - GI on board and appreciate recommendations. EGD performed with findings of gastritis and duodenitis. Started on PPI and Carafate - CT A/P negative for acute abnormalities - Hpylori bx negative 2. Acute dizziness- resolving - MRI results noted with no acute abnormalities - CT head negative for acute abnormalities - on Meclizine as outpatient without any relief 3. HTN - patient on very low dose Ramipril as outpatient - will give Lisinopril while inhouse - monitor and adjust as needed 4. Weight loss - unknown etiology as this time 5. Disposition - Medically stable for discharge home Result Diagram: 05/09/18 0510 05/09/18 0510 Subjective 24 Hr Interval Summary Free Text/Dictation Patient doing well and in no acute distress. States dizziness has improved since starting on PPI and Carafate. Daughter at bedside and discussed results of studies. Exam/Review of Systems Exam Vitals Vital Signs Date Temp Pulse Resp B/P (MAP) Pulse Ox O2 O2 Flow FiO2 Time Delivery Rate 05/11/18 70 08:11 05/11/18 98.2 19 121/66 97 07:29 (84) 05/09/18 Room Air 17:24 Intake and Output 05/10/18 05/10/18 05/11/18 1414:59 22:59 06:59 IntakeIntake Total 1100 ml BalanceBalance 1100 ml Exam General: no acute distress. answering questions appropriately CVS: S1, S2, regular rhythm, bradycardia. no murmurs Lungs: CTA bilaterally. no wheezing or rhonchi Abd: soft, nontender, nondistended, +BS, no rebound or guarding Ext: no edema, cyanosis, or clubbing Skin: no rashes or lesions appreciated Medications Medication Current Medications Aspirin (Halfprin) 81 mg DAILY PO Last administered on 05/10/18at 08:25; Admin Dose 81 MG; Start 05/09/18 at 09:00 Meclizine HCl (Antivert) 12.5 mg BID PRN PO DIZZINESS Last administered on 05/09/18at 20:38; Admin Dose 12.5 MG; Start 05/08/18 at 13:30 IV Flush (NS 3 ml) 3 ml PER PROTOCOL IV ; Start 05/08/18 at 13:30 Ondansetron HCl (Zofran Inj) 4 mg Q6H PRN IV NAUSEA/VOMITING; Start 05/08/18 at 13:30 Acetaminophen (Tylenol Tab) 650 mg Q6H PRN PO .PAIN 1-3 OR TEMP; Start 05/08/18 at 13:30 Docusate Sodium (Colace) 100 mg Q12H PRN PO .CONSTIPATION; Start 05/08/18 at 13:30 Magnesium Hydroxide (Milk Of Mag) 30 ml DAILY PRN PO .CONSTIPATION; Start 05/08/18 at 13:30 Lisinopril (Zestril) 5 mg DAILY PO Last administered on 05/10/18at 08:25; Admin Dose 5 MG; Start 05/09/18 at 09:00 Al Hydrox/Mg Hydrox/Simethicone (Mag-Al Plus) 30 ml Q6H PRN PO GASTROINTESTINAL UPSET Last administered on 05/09/18at 20:35; Admin Dose 30 ML; Start 05/09/18 at 20:30 Pantoprazole (Protonix Tab) 40 mg BID@06,18 PO Last administered on 05/11/18at 06:49; Admin Dose 40 MG; Start 05/10/18 at 18:00 Sucralfate (Carafate) 1 gm QID PO Last administered on 05/10/18at 20:24; Admin Dose 1 GM; Start 05/10/18 at 11:00 ANT MCCURDY MD May 11, 2018 08:40
[2018-05-11] MEDS: SUCRALFATE 1 GM TAB PO SCH ×2 (09:31→12:27)
[2018-05-11] MEDS: LISINOPRIL 5 MG TAB PO SCH (09:31)
[2018-05-11] MEDS: ASPIRIN (EC) 81 MG TAB PO SCH (09:31)
[2018-05-11] MEDS ORDERED: PANT40TA4 PO (13:21)
[2018-05-11] MEDS ORDERED: SUCR1TAB35 PO (13:21)
--- NOTE | 2018-05-11 13:29 | PDOCDIS ---
Discharge Instructions DIAGNOSIS Discharge Diagnosis 1. Acute abdominal pain secondary to gastritis and duodenitis 2. Acute dizziness- improving 3. Hypertension 4. Weight loss CONDITION [id number] Patient Condition: [id number] Stable HOME CARE INSTRUCTIONS: [id number] Diet Instructions: [id number] Low Fat /Cholesterol FOLLOW UP/APPOINTMENTS Follow-up Plan 1. Follow up with your primary care physician in 1- 2 weeks 2. Continue on Carafate four times a day for 4 weeks 3. Continue Protonix twice a day for 8 weeks then can continue daily as needed for acid reflux symptoms. It is best to take this medication at least minutes before eating 4. Best way to prevent reflux symptoms which lead to gastritis is: - avoid meals 2-3 hours before bedtime - do not lay flat after eating - Dietary recommendations: decrease foods that trigger acid production which include: fatty foods, caffeine, chocolate, spicy foods, food with high fat content, carbonated beverages, and peppermint 5. If experiencing any concerning symptoms, please go to your closest emergency department ANT MCCURDY MD May 11, 2018 13:29
[2018-05-11] MEDS ORDERED: DICL100G33 TP (13:36)
--- NOTE | 2018-05-11 19:47 | DS ---
Date/Time of Note Date/Time of Note DATE: 05/11/18 TIME: 19:39 Discharge Summary Admission/Discharge Info Admit Date/Time May 10, 2018 at 17:34 Discharge Date/Time May 11, 2018 at 14:30 Discharge Diagnosis 1. Acute abdominal pain secondary to gastritis and duodenitis 2. Acute dizziness- improving 3. Hypertension 4. Weight loss Patient Condition: Stable Consults GI- DrLisy Chung Procedures PROCEDURE: MR BRAIN/IAC WITHOUT AND WITH CONTRAST CLINICAL INDICATION: 67-year-old female with progressive worsening dizziness. TECHNIQUE: An MRI of the brain was performed on a [employer] HD[employer] 3T scanner utilizing the following sequences: Sagittal T1, axial T2, axial FLAIR, coronal gradient echo, axial T1 and axial EPI diffusion (b1000) with ADC maps. High- resolution images were obtained through the internal auditory canal region utilizing the following sequences: Axial T2, axial 3-D fiesta, axial T1 FLAIR as well as axial and coronal T1 FLAIR after the administration of 10 cc of gadoteridol contrast material. In addition, axial 3-D SPGR T1 and axial T1 with fat saturation were obtained after the administration of 10 cc of gadoteridol contrast material. The images reviewed on a PACS workstation. COMPARISON: CT brain May 08, 2018. FINDINGS: There is mild degree of diffuse cortical and central atrophy with compensatory ventricular enlargement. There is no evidence for mass-effect or midline shift. There are minimal periventricular and deep white matter foci of abnormal signal intensity on the T2-weighted and FLAIR sequences consistent with microangiopathic ischemic changes. There is no evidence for restricted diffusion to suggest an acute vascular event. There is no significant susceptibility artifact to suggest blood products. There are no intracranial areas of abnormal enhancement. The internal auditory canal regions are without evidence for abnormal signal intensity or contrast enhancement. Minimal mucosal thickening is seen within the ethmoid air cells bilaterally. IMPRESSION: 1. Mild diffuse atrophy. 2. Minimal microangiopathic ischemic changes. 3. Minimal mucosal thickening ethmoid air cells. .Anderson Harris MD, MD Date Time Electronically viewed and signed by .Anderson Harris MD, on 05/11/2018 09:44 PROCEDURE: XR Chest. CLINICAL INDICATION: Pain. . TECHNIQUE: Single frontal chest x-ray. COMPARISON: None. FINDINGS: The lungs are clear of acute infiltrates, edema, effusions, or masses.. The cardiomediastinal silhouette is unremarkable. The osseous structures are intact. IMPRESSION: No acute cardiopulmonary disease. RPTAT: GG .Ronak Kemp MD, MD Date Time Electronically viewed and signed by .Ronak Kemp MD, on 05/08/2018 11:52 PROCEDURE: CT Abdomen and Pelvis with contrast. CLINICAL INDICATION: Abdominal pain. TECHNIQUE: CT scan of the abdomen and pelvis with contrast was performed on a multi-detector high-resolution CT scanner. The patient was scanned following the uncomplicated intravenous administration of 100 cc of Omnipaque 300. Coronal and sagittal reformatted images were obtained from the axial source images. One or more of the following dose reduction techniques were used: Automated exposure control, adjustment of the mA and/or kV according to patient size, use of iterative reconstruction technique. Images were reviewed on a high-resolution PACS workstation. DICOM images are available. The total exam CTDI equals 6.68 mGy and the total exam DLP equals 384.24 mGy-cm. COMPARISON: None available. FINDINGS: CT ABDOMEN: Visualized lung bases: Minimal bilateral lower lobe dependent atelectatic changes are present. No significant infiltrate or pleural/pericardial effusion. The heart size is normal. Liver: The liver is normal in size and demonstrates normal overall enhancement. No evidence of solid hepatic mass or intrahepatic ductal dilatation. Patent portal vein. Gallbladder and bile ducts: Unremarkable. Spleen: Unremarkable. Pancreas: Unremarkable. No ductal dilatation, mass, or peripancreatic stranding. Adrenal glands: Unremarkable. Kidneys: No hydronephrosis, stones, or solid lesions seen. Vasculature: There is mild aortic atherosclerosis. No abdominal aortic aneurysm. Negative IVC. Lymph nodes: No adenopathy. GI: Scattered diverticula are present in the descending and sigmoid colon. No hiatal hernia. No evidence of obstruction. Peritoneal cavity: No free fluid or free air. CT PELVIS: GI: There is no evidence of inflamed appendix. Negative terminal ileum. There is a moderate amount of retained fecal material within the distended rectum which measures up to 5.6 cm in diameter.. Negative sigmoid colon. : Normal appearing bladder, distal ureters, and ureterovesiculal junctions. The pelvic organs are unremarkable. Peritoneal cavity: No free fluid or free air. Lymph nodes: No adenopathy. Osseous structures: No acute osseous injury. No lytic or blastic lesions. Other: None. IMPRESSION: 1. No evidence of abdominopelvic acute inflammatory process, mass, or lymphadenopathy. 2. Diverticulosis. RPTAT: JJ .Gordy Wood MD, Date Time Electronically viewed and signed by .Gordy Wood MD, on 05/08/2018 15:19 PROCEDURE: CT Brain without contrast. CLINICAL INDICATION: Dizziness. TECHNIQUE: A CT of the brain without contrast was performed utilizing axial sections from the skull base through the vertex. One or more the following does reduction techniques were utilized: Automated exposure control, adjustment of the mA/ or kV according to patient's size, or use of iterative reconstruction technique. Total exam CTDIvol is 39 MGy and DLP is 674 mGy-cm. DICOM images are available. COMPARISON: None available. FINDINGS: The ventricles and sulci are mildly prominent indicative of volume loss. There is no intracranial hemorrhage, mass effect or midline shift. No abnormal intra- axial or extra-axial fluid collections are seen. The cuevas/white matter differentiation is preserved. There are mild foci of hypoattenuation in the white matter, which are nonspecific in etiology but likely reflect chronic small vessel ischemic gonzalez es. There are mild intracranial vascular calcifications consistent with atherosclerosis. The visualized paranasal sinuses are essentially clear. IMPRESSION: 1. No acute intracranial hemorrhage, transcortical infarction or mass effect. 2. Mild intracranial atherosclerosis and chronic small vessel ischemic changes. 3. Mild generalized cerebral volume loss. RPTAT: HH .Francesca Mendez MD, Date Time Electronically viewed and signed by .Francesca Mendez MD, MD on 05/08/2018 15:33 Hx of Present Illness 67 yo F with PMH HTN presented to ED with worsening dizziness and abdominal pain for the past 6 weeks. Patient states she was evaluated by her PCP for BPPV and did not have findings significant for vertigo. He sent patient for CT head which was not performed yet. Patient also admits to worsening epigastric pain and associated nausea and vomiting. She admits to recent weight loss which she associates with diminished appetite. Denies constipation or diarrhea. She has had regular BMs daily. She was supposed to have a CT scan abd/pelvis performed as well as outpatient. She was concerned that she had issues with her gallbladder. Family at bedside and discussed she was told she needed to have a repeat mammogram performed given her previous one was abnormal. Patient denies any melena, BRBPR, family history of GI issues, cardiac issues. Denies any smoking or alcohol use. Patient was reported to have HR in the 40s during transport in EMS but on EKG was 63. Patient denies any chest pain, shortness of breath, palpitations, LOC, visual changes or paraesthesia. Hospital Course Patient was admitted for evaluation of GI symptoms and dizziness. Patient had CT abdomen and pelvis, and head were all negative for acute abnormalities. MRI was also performed and negative for acute issues. Patient was evaluated by GI and underwent EGD. She was found with gastritis and duodenitis. Biopsy was negative for Hpylori. Patient was started on PPI BID and Carafate QID. Patients symptoms improved and patient was discharged in good condition. On day of discharge, patients vitals and physical exam were stable. Home Meds Active Scripts Diclofenac Sodium (Diclofenac Sodium) 100 Gm Gel..gram., 100 GM TP BID for 30 Days, #1 TUB 6 Refills Prov:ANT MCCURDY MD 05/11/18 Sucralfate (Carafate) 1 Gm Tablet, 1 GM PO QID for 30 Days, #120 TAB Prov:ANT MCCURDY MD 05/11/18 Pantoprazole* (Pantoprazole*) 40 Mg Tablet.dr, 40 MG PO BID@06,18 for 60 Days, #120 TAB 6 Refills Prov:ANT MCCURDY MD 05/11/18 Reported Medications Ramipril (Ramipril) 1.25 Mg Capsule, 1.25 MG PO DAILY, CAP 05/08/18 Meclizine Hcl* (Meclizine Hcl*) 25 Mg Tablet, 12.5 MG PO BID PRN for DIZZINESS, TAB 05/08/18 Omeprazole* (Omeprazole*) 40 Mg Capsule.dr, 40 MG PO DAILY, #30 CAP 05/08/18 Aspirin (Low Dose Aspirin) 81 Mg Tablet.dr, 81 MG PO DAILY, #30 TAB 05/08/18 Follow-up Plan 1. Follow up with your primary care physician in 1- 2 weeks 2. Continue on Carafate four times a day for 4 weeks 3. Continue Protonix twice a day for 8 weeks then can continue daily as needed for acid reflux symptoms. It is best to take this medication at least minutes before eating 4. Best way to prevent reflux symptoms which lead to gastritis is: - avoid meals 2-3 hours before bedtime - do not lay flat after eating - Dietary recommendations: decrease foods that trigger acid production which include: fatty foods, caffeine, chocolate, spicy foods, food with high fat content, carbonated beverages, and peppermint 5. If experiencing any concerning symptoms, please go to your closest emergency department Primary Care Provider Not On Staff Doctor Time spent on discharge: > 30 minutes ANT MCCURDY MD May 11, 2018 19:47
== END 2018-05-11 14:30 | disposition home or self-care (01) | DRG 392 ==
LOC: E/R 11:19 → 6WM 12:38 → OBSVTOIN 05-10 17:34
PROVIDERS: ADMIT Internal Medicine; ATTEND Internal Medicine
PROC: 0DB68ZX Excision of Stomach, Via Natural or Artificial Opening Endoscopic, Diagnostic (ICD-10-PCS; principal; 2018-05-10)
PROC: 0DB98ZX Excision of Duodenum, Via Natural or Artificial Opening Endoscopic, Diagnostic (ICD-10-PCS; 2018-05-10)
DX: K29.70 Gastritis, unspecified, without bleeding (principal); I10 Essential (primary) hypertension; R63.4 Abnormal weight loss; Z68.21 Body mass index [BMI] 21.0-21.9, adult; R42 Dizziness and giddiness; K29.80 Duodenitis without bleeding
CPT/HCPCS: 36415; 70450; 70552; 71045; 74177; 80048; 80053; 81003; 83690; 83735; 84439; 84443; 84481; 84484; 85025; 87338; 88305; 88312; 93005; 93306; 96374; 97161; G0378; J2405; J7030; Q9967

== ENCOUNTER 2018-11-12 08:31 | Day surgery (SDC) | payer MEDICARE, BC ==
[~2018-11-12] VITALS: Ht 165.1 cm; Wt 60.1 kg
[~2018-11-12 08:31] MED LIST: ASPI81TA52 PO; DICL100G33 TP; IBUP-1561 PO; MECL-77 PO; OMEP40CA38 PO; PANT40TA4 PO; RAMI1.2510 PO; RAMI2.5C2 PO; SUCR1TAB35 PO
[2018-11-12 10:18] VITALS: Ht 165.1 cm; Wt 60.1 kg
[2018-11-12 10:25] VITALS: BP 148/68; PULSE 59; RESP 59
[2018-11-12] MEDS ORDERED: PROPOFOL 40 ML ONE (10:48)
[2018-11-12 11:27] VITALS: BP 114/55; PULSE 50; RESP 22
[2018-11-12 11:40] VITALS: BP 134/63; PULSE 52; RESP 20
== END 2018-11-12 14:11 | disposition home or self-care (01) ==
LOC: GIL 08:31
PROVIDERS: ATTEND Internal Medicine Gastroenterology
DX: D50.9 Iron deficiency anemia, unspecified (principal); K64.8 Other hemorrhoids
CPT/HCPCS: 88305